=== PATIENT | female | born 1990 | race Caucasian/White ===

== ENCOUNTER 2016-09-28 10:55 | Outpatient (CLI) | payer OTHER | END 2016-09-28 10:56 | disposition home or self-care (01) | LOC: BABIESSH 10:55 | PROVIDERS: ATTEND Licensed Practical Nurse | DX: Z39.1 Encounter for care and examination of lactating mother (principal) ==

== ENCOUNTER 2016-10-20 10:26 | Emergency (ER) | payer OTHER | END 2016-10-20 11:56 | disposition home or self-care (01) | LOC: ED 10:26 | DX: N64.59 Other signs and symptoms in breast (principal) ==

== ENCOUNTER 2016-10-22 10:59 | Emergency (ER) | payer OTHER | END 2016-10-22 12:38 | disposition home or self-care (01) | LOC: ED 10:59 | DX: M54.5 Low back pain (principal); B36.0 Pityriasis versicolor; V48.5XXA Car driver injured in noncollision transport accident in traffic accident, initial encounter; Y92.410 Unspecified street and highway as the place of occurrence of the external cause ==